=== PATIENT | female | born 1965 | race Hispanic/Latino ===

== ENCOUNTER → 2020-01-08 | Outpatient (CLI) | payer OTHER | END | disposition home or self-care (01) | LOC: SHCH 15:19 | PROVIDERS: ATTEND Internal Medicine Cardiovascular Disease | DX: R06.00 Dyspnea, unspecified (principal) | CPT/HCPCS: 93306; 93356 ==

== ENCOUNTER → 2020-01-13 | Outpatient (CLI) | payer OTHER | END | disposition home or self-care (01) | LOC: SHCH 10:25 → EDUNIT# 10:30 | PROVIDERS: ATTEND Internal Medicine Cardiovascular Disease | DX: I87.2 Venous insufficiency (chronic) (peripheral) (principal) | CPT/HCPCS: 93970 ==

== ENCOUNTER → 2020-01-27 | Outpatient (CLI) | payer OTHER ==
[~2020-01-27] MED LIST: REGADENOSON 0.4 MG/5 ML PF SYG IVP SCH
== END | disposition home or self-care (01) ==
LOC: SHCH 07:54
PROVIDERS: ATTEND Internal Medicine Cardiovascular Disease
DX: R00.0 Tachycardia, unspecified (principal); R06.00 Dyspnea, unspecified
CPT/HCPCS: 78452; 93017; 96374; A9500 ×2; J2785

== ENCOUNTER → 2023-07-11 | Outpatient (CLI) | payer OTHER ==
[~2023-07-11] MED LIST changes: +ASPI-1443 PO; +ATOR20TA65 PO; +BUME2TAB5 PO; +CARV3.12 PO; +CHOL100046 PO; +FERS325 PO; +GLIP5TAB15 PO; +HYDR25TA67 PO; +ISOS20TA85 PO; +METO5TAB7 PO; -REGADENOSON 0.4 MG/5 ML PF SYG IVP SCH; +RIVA2.5T PO
[2023-07-11 16:24] LABS: BASOPHILS # (AUTO) 0.04 K/uL (0.00-0.20); BASOPHILS % (AUTO) 0.4 % (0.0-5.0); EOSINOPHILS # (AUTO) 0.15 K/uL (0.00-0.70); EOSINOPHILS % (AUTO) 1.7 % (0.0-8.0); IMMATURE GRANULOCYTE ABSOLUTE 0.05 K/uL (0-1); LYMPHOCYTES # (AUTO) 0.9 K/uL (1.0-4.8); LYMPHOCYTES % (AUTO) 9.5 % (21.0-51.0); MEAN CORPUSCULAR HEMOGLOBIN 25.2 pg (27.0-33.0); MEAN CORPUSCULAR HGB CONC 28.1 g/dL (32.0-36.0); MEAN CORPUSCULAR VOLUME 89.7 fL (79-99); MONOCYTES # (AUTO) 0.4 K/uL (0.1-1.0); MONOCYTES % (AUTO) 4.8 % (3.0-13.0); NEUTROPHILS # (AUTO) 7.5 K/uL (1.8-7.7); PLATELET COUNT (AUTO) 342 K/uL (130-400); RED BLOOD CELL COUNT(AUTO) 3.01 MIL/uL (4.00-5.50); RED CELL DISTRIBUTION WIDTH 17.7 % (11.0-15.5)
[2023-07-11 16:56] LABS: ALBUMIN 3.1 g/dL (3.5-5.0); BILIRUBIN,TOTAL 0.6 mg/dL (0.2-1.0); CREATININE 2.8 mg/dL (0.5-1.0); MAGNESIUM 2.2 mg/dL (1.80-2.40); PHOSPHORUS 5.1 mg/dL (2.5-4.9); POTASSIUM 5.1 mmol/L (3.5-5.1); TOTAL PROTEIN, SERUM 7.8 g/dL (6.0-8.3)
== END | disposition home or self-care (01) ==
LOC: LAB 13:33
PROVIDERS: ATTEND Internal Medicine Cardiovascular Disease
DX: I50.22 Chronic systolic (congestive) heart failure (principal); R60.9 Edema, unspecified; R19.7 Diarrhea, unspecified
CPT/HCPCS: 36415; 80053; 83735; 83880; 84100; 85025; 87324

== ENCOUNTER → 2023-08-16 | Outpatient (CLI) | payer OTHER ==
[2023-08-16 16:07] LABS: BASOPHILS # (AUTO) 0.05 K/uL (0.00-0.20); BASOPHILS % (AUTO) 0.4 % (0.0-5.0); EOSINOPHILS # (AUTO) 0.15 K/uL (0.00-0.70); EOSINOPHILS % (AUTO) 1.3 % (0.0-8.0); HEMATOCRIT 33.4 % (36-48); IMMATURE GRANULOCYTE ABSOLUTE 0.05 K/uL (0-1); LYMPHOCYTES # (AUTO) 1.9 K/uL (1.0-4.8); MEAN CORPUSCULAR HEMOGLOBIN 25.2 pg (27.0-33.0); MEAN CORPUSCULAR HGB CONC 30.5 g/dL (32.0-36.0); MEAN CORPUSCULAR VOLUME 82.7 fL (79-99); MONOCYTES # (AUTO) 0.7 K/uL (0.1-1.0); MONOCYTES % (AUTO) 5.5 % (3.0-13.0); NEUTROPHILS # (AUTO) 9.1 K/uL (1.8-7.7); NEUTROPHILS % (AUTO) 76.4 % (40.0-77.0); PLATELET COUNT (AUTO) 355 K/uL (130-400); RED BLOOD CELL COUNT(AUTO) 4.04 MIL/uL (4.00-5.50); RED CELL DISTRIBUTION WIDTH 16.7 % (11.0-15.5); WHITE BLOOD COUNT (AUTO) 11.9 K/uL (4.8-10.8)
[2023-08-16 16:19] LABS: ALBUMIN 3.7 g/dL (3.5-5.0); BILIRUBIN,TOTAL 0.5 mg/dL (0.2-1.0); CREATININE 4.4 mg/dL (0.5-1.0); MAGNESIUM 2.4 mg/dL (1.80-2.40); POTASSIUM 3.6 mmol/L (3.5-5.1); TOTAL PROTEIN, SERUM 8.9 g/dL (6.0-8.3)
== END | disposition home or self-care (01) ==
LOC: LAB 12:37 → EDSTATUS 12:45 → LAB 12:46
PROVIDERS: ATTEND Internal Medicine Cardiovascular Disease
DX: N18.4 Chronic kidney disease, stage 4 (severe) (principal)
CPT/HCPCS: 36415; 80053; 83735; 83880; 85025

== ENCOUNTER 2023-09-18 11:10 | Day surgery (SDC) | payer OTHER ==
[~2023-09-18] VITALS: Ht 160 cm; Wt 78.5 kg
[2023-09-18] VITALS (16 sets, daily range): BP systolic 149–199; BP diastolic 55–82; PULSE 72–82; RESP 10–18
[2023-09-18] MEDS: 0.9%NACL 1000ML 1,000 ML IV ONE (12:05)
[2023-09-18] MEDS ORDERED: KETAMINE 50MG/ML SYRINGE 50 MG/ML DISP.SYRIN ONE (13:07)
[2023-09-18] MEDS: HYDRALAZINE 20MG/ML VIAL ONE (14:07)
[2023-09-18] MEDS: DEXTROSE 50%-WATER 50 ML DISP.SYRIN IV ONE (14:07)
== END 2023-09-18 15:15 | disposition home or self-care (01) ==
LOC: SUH 11:10 → DAH 11:10 → SUH 15:15
PROVIDERS: ATTEND Internal Medicine Gastroenterology
DX: R19.7 Diarrhea, unspecified (principal); R19.4 Change in bowel habit; K64.0 First degree hemorrhoids; D64.9 Anemia, unspecified; I25.10 Atherosclerotic heart disease of native coronary artery without angina pectoris; K76.0 Fatty (change of) liver, not elsewhere classified; K31.A0 Gastric intestinal metaplasia, unspecified; K80.20 Calculus of gallbladder without cholecystitis without obstruction; N20.0 Calculus of kidney; E78.5 Hyperlipidemia, unspecified; I25.2 Old myocardial infarction; E11.22 Type 2 diabetes mellitus with diabetic chronic kidney disease; I12.9 Hypertensive chronic kidney disease with stage 1 through stage 4 chronic kidney disease, or unspecified chronic kidney disease; N18.9 Chronic kidney disease, unspecified; Z79.84 Long term (current) use of oral hypoglycemic drugs; Z79.82 Long term (current) use of aspirin; Z79.01 Long term (current) use of anticoagulants; Z95.1 Presence of aortocoronary bypass graft; Z98.51 Tubal ligation status; Z86.16 Personal history of COVID-19; Z86.010 Personal history of colon polyps; Z79.899 Other long term (current) drug therapy; Z98.890 Other specified postprocedural states; Z83.3 Family history of diabetes mellitus; Z82.49 Family history of ischemic heart disease and other diseases of the circulatory system; Z80.0 Family history of malignant neoplasm of digestive organs
CPT/HCPCS: 45378; 93005; 82948 ×3; 81025; J7030; J7070; J0360; J3490; A4215 ×3; A4223; A4221; A4663; A4606; A4620 ×2

== ENCOUNTER 2023-09-19 10:59 | Day surgery (SDC) | payer OTHER ==
[2023-09-19] VITALS (11 sets, daily range): BP systolic 154–178; BP diastolic 65–86; PULSE 65–79; RESP 15–18
[~2023-09-19] VITALS: Ht 160 cm; Wt 78.5 kg
[~2023-09-19 10:59] MED LIST changes: +0.9%NACL 1000ML 1,000 ML IV ONE
[2023-09-19] MEDS ORDERED: LIDOCAINE PF 100MG/5ML (2%) SYRINGE 5ML ONE (13:43)
[2023-09-19] MEDS ORDERED: PROPOFOL 10 MG/ML 20ML VIAL IV ONE (13:43)
[2023-09-19] MEDS ORDERED: MIDAZOLAM HCL 1 MG/ML 2ML VIAL ONE (13:52)
[2023-09-19] MEDS: HYDRALAZINE 20MG/ML VIAL ONE (15:05)
== END 2023-09-19 15:30 | disposition home or self-care (01) ==
LOC: ENDO 10:59 → DAH 10:59 → ENDO 15:30
PROVIDERS: ATTEND Internal Medicine Gastroenterology
DX: R19.4 Change in bowel habit (principal); K64.0 First degree hemorrhoids; K31.A0 Gastric intestinal metaplasia, unspecified; E78.5 Hyperlipidemia, unspecified; I25.10 Atherosclerotic heart disease of native coronary artery without angina pectoris; I12.9 Hypertensive chronic kidney disease with stage 1 through stage 4 chronic kidney disease, or unspecified chronic kidney disease; E11.22 Type 2 diabetes mellitus with diabetic chronic kidney disease; N18.9 Chronic kidney disease, unspecified; R19.7 Diarrhea, unspecified; K76.0 Fatty (change of) liver, not elsewhere classified; K21.9 Gastro-esophageal reflux disease without esophagitis; K80.20 Calculus of gallbladder without cholecystitis without obstruction; N20.0 Calculus of kidney; D64.9 Anemia, unspecified; Z86.73 Personal history of transient ischemic attack (TIA), and cerebral infarction without residual deficits; Z86.010 Personal history of colon polyps; Z83.3 Family history of diabetes mellitus; Z82.49 Family history of ischemic heart disease and other diseases of the circulatory system; Z79.82 Long term (current) use of aspirin; Z79.84 Long term (current) use of oral hypoglycemic drugs; Z79.899 Other long term (current) drug therapy; Z98.51 Tubal ligation status; Z98.890 Other specified postprocedural states; Z86.16 Personal history of COVID-19
CPT/HCPCS: 45378; 82948 ×2; J7030 ×2; J2001; J0360; J2250; J2704; A4620; A4215; A4223; A4657; A4222; J3490

== ENCOUNTER 2023-10-13 22:54 | Inpatient (IN) | payer OTHER ==
[~2023-10-13] VITALS: Ht 162.6 cm; Wt 80.3 kg
[~2023-10-13 22:54] MED LIST changes: -0.9%NACL 1000ML 1,000 ML IV ONE
[2023-10-13 23:07] LABS: BASOPHILS # (AUTO) 0.07 K/uL (0.00-0.20); BASOPHILS % (AUTO) 0.4 % (0.0-5.0); EOSINOPHILS # (AUTO) 0.22 K/uL (0.00-0.70); EOSINOPHILS % (AUTO) 1.3 % (0.0-8.0); HEMATOCRIT 28.8 % (36-48); IMMATURE GRANULOCYTE ABSOLUTE 0.13 K/uL (0-1); LYMPHOCYTES # (AUTO) 1.1 K/uL (1.0-4.8); LYMPHOCYTES % (AUTO) 6.1 % (21.0-51.0); MEAN CORPUSCULAR HGB CONC 30.6 g/dL (32.0-36.0); MONOCYTES # (AUTO) 0.6 K/uL (0.1-1.0); MONOCYTES % (AUTO) 3.4 % (3.0-13.0); NEUTROPHILS # (AUTO) 15.2 K/uL (1.8-7.7); PLATELET COUNT (AUTO) 316 K/uL (130-400); RED BLOOD CELL COUNT(AUTO) 3.39 MIL/uL (4.00-5.50); RED CELL DISTRIBUTION WIDTH 18.1 % (11.0-15.5); WHITE BLOOD COUNT (AUTO) 17.3 K/uL (4.8-10.8)
[2023-10-13] MEDS: HYDROMORPHONE 0.5 MG SYG (0.5MG/0.5ML) IVP ONE (23:07)
[2023-10-13] MEDS: FUROSEMIDE 40MG VIAL IV ONE (23:08)
[2023-10-13 23:10] VITALS: PULSE 90; RESP 28; O2SAT 100
[2023-10-13 23:15] LABS: POTASSIUM 5.7 mmol/L (3.5-5.1)
[2023-10-13 23:20] LABS: ALBUMIN 3.3 g/dL (3.5-5.0); BILIRUBIN,TOTAL 0.7 mg/dL (0.2-1.0); TOTAL PROTEIN, SERUM 8.2 g/dL (6.0-8.3)
[2023-10-13 23:24] LABS: B-TYPE NATRIURETIC PEPTIDE 1060 pg/mL (0-100)
[2023-10-13] MEDS: NITROGLYCERIN 1GM OINT 1 INCH/1GM TD ONE (23:33)
[2023-10-13 23:49] LABS: INFLUENZA TYPE A Negative For Type A (NEGATIVE); INFLUENZA TYPE B Negative For Type B (NEGATIVE)
[2023-10-13 23:58] LABS: SARS-CoV-2, RNA, NAAT NEGATIVE SARS CoV-2 (NEGATIVE)
[2023-10-14] VITALS (15 sets, daily range): BP systolic 119–173; BP diastolic 51–87; PULSE 64–79; RESP 14–20; O2SAT 98–100
[2023-10-14 00:25] LABS: APPEARANCE,URINE CLOUDY (CLEAR); BILIRUBIN,URINE NEGATIVE (NEGATIVE); COLOR,URINE YELLOW (YELLOW); GLUCOSE, URINE (UA) 70 mg/dL (NEGATIVE); KETONES,URINE NEGATIVE (NEGATIVE); LEUKOCYTE ESTERASE ,URINE 500 Leu/uL (NEGATIVE); NITRATE,URINE NEGATIVE (NEGATIVE); PH,URINE 5.5 (5.0-8.0); PROTEIN,URINE 100 mg/dL (NEGATIVE); UROBILINOGEN,URINE 0.2 mg/dL (0.2-1.0)
[2023-10-14] MEDS ORDERED: FOLI0.8T22 PO (00:37)
[2023-10-14] MEDS ORDERED: INSU100V12 SQ (00:37)
[2023-10-14] MEDS ORDERED: ASCO100031 PO (00:37)
[2023-10-14 00:40] LABS: ADD UA MICROSCOPIC YES
[2023-10-14 00:45] LABS: BACTERIA,URINE MANY /HPF (None Seen); SQUAMOUS EPITHELIAL CELL,UR FEW /HPF (0-2); WBC CLUMP MANY /HPF (0-1); WBC,URINE TNTC /HPF (0-1)
[2023-10-14 00:50] LABS: ABG BASE EXCESS -9.2 mmol/L (-2.0-3.0); ABG HCO3 16.6 mmol/L (21.0-28.0); ABG OXYGEN SATURATION 97.1 % (95.0-99.0); ABG PCO2 36 mmHg (32-45); ABG PH 7.281 (7.35-7.450); PO2, ARTERIAL BG 102.8 mmHg (83.0-108.0); VENT MODE, BG BIPAP 12 (ROOM AIR)
[2023-10-14] MEDS: INSULIN HUMULIN R 100 UNIT/ML 3ML SQ SCH (06:07)
[2023-10-14] MEDS: AZITHROMYCIN 500MG+NS 250ML 250 ML IVPB SCH (08:19)
[2023-10-14] MEDS: CEFTRIAXONE 2GM VIAL IVPB SCH (08:19)
[2023-10-14] MEDS: ASPIRIN 81 MG EC TAB PO SCH (08:20)
[2023-10-14] MEDS: FUROSEMIDE 40MG VIAL IV SCH (08:20)
[2023-10-14 08:34] LABS: BASOPHILS # (AUTO) 0.05 K/uL (0.00-0.20); BASOPHILS % (AUTO) 0.4 % (0.0-5.0); EOSINOPHILS # (AUTO) 0.16 K/uL (0.00-0.70); EOSINOPHILS % (AUTO) 1.3 % (0.0-8.0); HEMATOCRIT 27.2 % (36-48); IMMATURE GRANULOCYTE ABSOLUTE 0.09 K/uL (0-1); LYMPHOCYTES # (AUTO) 1.4 K/uL (1.0-4.8); LYMPHOCYTES % (AUTO) 11.7 % (21.0-51.0); MEAN CORPUSCULAR HEMOGLOBIN 26.5 pg (27.0-33.0); MEAN CORPUSCULAR HGB CONC 29.8 g/dL (32.0-36.0); MEAN CORPUSCULAR VOLUME 88.9 fL (79-99); MONOCYTES # (AUTO) 0.5 K/uL (0.1-1.0); MONOCYTES % (AUTO) 3.6 % (3.0-13.0); NEUTROPHILS # (AUTO) 10.2 K/uL (1.8-7.7); NEUTROPHILS % (AUTO) 82.3 % (40.0-77.0); PLATELET COUNT (AUTO) 224 K/uL (130-400); RED BLOOD CELL COUNT(AUTO) 3.06 MIL/uL (4.00-5.50); WHITE BLOOD COUNT (AUTO) 12.4 K/uL (4.8-10.8)
[2023-10-14 08:42] LABS: ALBUMIN 2.8 g/dL (3.5-5.0); BILIRUBIN,TOTAL 0.7 mg/dL (0.2-1.0); CREATININE 2.9 mg/dL (0.5-1.0); MAGNESIUM 2.1 mg/dL (1.80-2.40); PHOSPHORUS 4.4 mg/dL (2.5-4.9); POTASSIUM 4.4 mmol/L (3.5-5.1); TOTAL PROTEIN, SERUM 7.4 g/dL (6.0-8.3)
[2023-10-14] MEDS: HEPARIN 5,000 UNIT VIAL SQ SCH (08:42)
[2023-10-14] MEDS ORDERED: FUROSEMIDE 40MG VIAL IV SCH (09:00)
[2023-10-14] MEDS ORDERED: ENOXAPARIN SODIUM 40 MG/0.4 ML SYRINGE SQ SCH (09:00)
[2023-10-14 09:04] LABS: ABG BASE EXCESS -5.7 mmol/L (-2.0-3.0); ABG HCO3 19.5 mmol/L (21.0-28.0); ABG OXYGEN SATURATION 80.6 % (95.0-99.0); ABG PCO2 37 mmHg (32-45); ABG PH 7.334 (7.35-7.450); DEVICE COMMENT LR EDDIE, RN; PO2, ARTERIAL BG 47.1 mmHg (83.0-108.0); VENT MODE, BG RA (ROOM AIR)
[2023-10-14] MEDS: HEPARIN 5,000 UNIT VIAL IV ONE (11:12)
[2023-10-14] MEDS: HEPARIN 25,000 UNITS/250ML D5W 250 ML IV SCH (11:20)
[2023-10-14] MEDS: CARVEDILOL 3.125 MG TABLET PO SCH (11:28)
[2023-10-14] MEDS: ISOSORBIDE MONONITRATE 20 MG TABLET PO SCH (11:28)
[2023-10-14 13:13] LABS: CREATININE,URINE RANDOM 66.26 mg/dL (30-135)
[2023-10-14] MEDS: HYDRALAZINE HCL 10 MG TABLET PO SCH (15:02)
[2023-10-14] MEDS ORDERED: CARVEDILOL 3.125 MG TABLET PO SCH (21:00)
[2023-10-14] MEDS: ATORVASTATIN 20 MG TABLET PO SCH (22:01)
[2023-10-15] VITALS (8 sets, daily range): BP systolic 118–168; BP diastolic 54–74; PULSE 65–76; RESP 18–21; O2SAT 100
[2023-10-15 00:07] LABS: INR 1.09 (0.85-1.15); PROTHROMBIN TIME 11.7 SEC (9.6-11.6)
[2023-10-15 04:07] LABS: BASOPHILS # (AUTO) 0.04 K/uL (0.00-0.20); BASOPHILS % (AUTO) 0.4 % (0.0-5.0); EOSINOPHILS # (AUTO) 0.38 K/uL (0.00-0.70); EOSINOPHILS % (AUTO) 3.5 % (0.0-8.0); HEMATOCRIT 24.4 % (36-48); IMMATURE GRANULOCYTE ABSOLUTE 0.05 K/uL (0-1); LYMPHOCYTES # (AUTO) 1.7 K/uL (1.0-4.8); LYMPHOCYTES % (AUTO) 15.4 % (21.0-51.0); MEAN CORPUSCULAR HEMOGLOBIN 26.3 pg (27.0-33.0); MEAN CORPUSCULAR HGB CONC 29.9 g/dL (32.0-36.0); MEAN CORPUSCULAR VOLUME 87.8 fL (79-99); MONOCYTES # (AUTO) 0.6 K/uL (0.1-1.0); MONOCYTES % (AUTO) 5.9 % (3.0-13.0); NEUTROPHILS % (AUTO) 74.3 % (40.0-77.0); PLATELET COUNT (AUTO) 206 K/uL (130-400); RED BLOOD CELL COUNT(AUTO) 2.78 MIL/uL (4.00-5.50); RED CELL DISTRIBUTION WIDTH 18.2 % (11.0-15.5); WHITE BLOOD COUNT (AUTO) 10.8 K/uL (4.8-10.8)
[2023-10-15 04:14] LABS: % IRON SATURATION 6.1 % (22-44); CREATININE 3.2 mg/dL (0.5-1.0); PHOSPHORUS 5.9 mg/dL (2.5-4.9); POTASSIUM 4.7 mmol/L (3.5-5.1)
[2023-10-15] MEDS: ISOSORBIDE MONONITRATE 20 MG TABLET PO SCH (08:30)
[2023-10-15] MEDS ORDERED: ISOSORBIDE MONONITRATE 20 MG TABLET PO SCH (09:00)
[2023-10-15] MEDS ORDERED: LACE ASSESSMENT (SCORE > 11) MISC SCH (11:30)
[2023-10-15] MEDS: METOLAZONE 2.5 MG TABLET PO ONE (14:26)
[2023-10-15] MEDS: BUMETANIDE 1MG/4ML VIAL IVP SCH (15:26)
[2023-10-16] VITALS (8 sets, daily range): BP systolic 127–183; BP diastolic 62–89; PULSE 74–98; RESP 18–21; O2SAT 96
[2023-10-16 03:50] LABS: HEMATOCRIT 23.8 % (36-48); MEAN CORPUSCULAR HEMOGLOBIN 26.2 pg (27.0-33.0); MEAN CORPUSCULAR HGB CONC 30.3 g/dL (32.0-36.0); MEAN CORPUSCULAR VOLUME 86.5 fL (79-99); RED BLOOD CELL COUNT(AUTO) 2.75 MIL/uL (4.00-5.50); RED CELL DISTRIBUTION WIDTH 17.9 % (11.0-15.5); WHITE BLOOD COUNT (AUTO) 10.4 K/uL (4.8-10.8)
[2023-10-16 04:07] LABS: ALBUMIN 2.6 g/dL (3.5-5.0); BILIRUBIN,TOTAL 0.3 mg/dL (0.2-1.0); CREATININE 3.2 mg/dL (0.5-1.0); MAGNESIUM 1.8 mg/dL (1.80-2.40); PHOSPHORUS 6.3 mg/dL (2.5-4.9); POTASSIUM 4.6 mmol/L (3.5-5.1)
[2023-10-16] MEDS: FERROUS SULFATE 325 MG TABLET.DR PO SCH (08:50)
[2023-10-16] MEDS: METOLAZONE 2.5 MG TABLET PO SCH (08:50)
[2023-10-16 09:29] LABS: HEMOGLOBIN A1C 8.1 % (4.0-6.0)
[2023-10-16 09:32] LABS: CHOLESTEROL 97 mg/dL (<200); HDL CHOLESTEROL 44 mg/dL (35-85); LDL DIRECT 45 mg/dL (0-99); TRIGLYCERIDES 83 mg/dL (30-200)
[2023-10-16] MEDS ORDERED: COMPOUND IV MISC 1 EACH IVSOLN MISC PRN (14:00)
[2023-10-16] MEDS: IRON SUCROSE COMPLEX 300 MG in 0.9% NACL 250ML IV SCH (21:21)
[2023-10-17] VITALS (11 sets, daily range): BP systolic 113–154; BP diastolic 53–76; PULSE 68–76; RESP 16–18; O2SAT 92–97
[2023-10-17 04:04] LABS: % IRON SATURATION 90.4 % (22-44)
[2023-10-17 04:11] LABS: ALBUMIN 2.6 g/dL (3.5-5.0); BILIRUBIN,TOTAL 0.3 mg/dL (0.2-1.0); CREATININE 3.1 mg/dL (0.5-1.0); MAGNESIUM 1.7 mg/dL (1.80-2.40); PHOSPHORUS 5.9 mg/dL (2.5-4.9); POTASSIUM 4.8 mmol/L (3.5-5.1); TOTAL PROTEIN, SERUM 6.6 g/dL (6.0-8.3)
[2023-10-17 04:51] LABS: HEMATOCRIT 23.5 % (36-48); MEAN CORPUSCULAR HEMOGLOBIN 26.2 pg (27.0-33.0); MEAN CORPUSCULAR HGB CONC 30.2 g/dL (32.0-36.0); MEAN CORPUSCULAR VOLUME 86.7 fL (79-99); RED BLOOD CELL COUNT(AUTO) 2.71 MIL/uL (4.00-5.50); RED CELL DISTRIBUTION WIDTH 17.5 % (11.0-15.5); WHITE BLOOD COUNT (AUTO) 11.2 K/uL (4.8-10.8)
[2023-10-17] MEDS: BUMETANIDE 1MG/4ML VIAL IVP SCH (08:47)
[2023-10-17] MEDS: EPOETIN ALFA-EPBX (NON-ESRD) 10,000 UNIT/ML VIAL SQ SCH (17:40)
[2023-10-18] VITALS (9 sets, daily range): BP systolic 125–141; BP diastolic 60–73; PULSE 65–76; RESP 16–18; O2SAT 92–95
[2023-10-18 03:32] LABS: HEMATOCRIT 23.1 % (36-48); MEAN CORPUSCULAR HEMOGLOBIN 25.8 pg (27.0-33.0); MEAN CORPUSCULAR HGB CONC 30.3 g/dL (32.0-36.0); MEAN CORPUSCULAR VOLUME 85.2 fL (79-99); RED BLOOD CELL COUNT(AUTO) 2.71 MIL/uL (4.00-5.50); RED CELL DISTRIBUTION WIDTH 17.7 % (11.0-15.5); WHITE BLOOD COUNT (AUTO) 11.1 K/uL (4.8-10.8)
[2023-10-18 03:43] LABS: ALBUMIN 2.6 g/dL (3.5-5.0); BILIRUBIN,TOTAL 0.3 mg/dL (0.2-1.0); CREATININE 3.4 mg/dL (0.5-1.0); MAGNESIUM 1.9 mg/dL (1.80-2.40); POTASSIUM 4.2 mmol/L (3.5-5.1); TOTAL PROTEIN, SERUM 6.9 g/dL (6.0-8.3)
[2023-10-18] MEDS: BUMETANIDE 1 MG TAB PO SCH (08:22)
[2023-10-18] MEDS: DOCUSATE SODIUM 100 MG CAP PO SCH (12:27)
[2023-10-18] MEDS: FERROUS SULFATE 325 MG TABLET.DR PO SCH (20:06)
[2023-10-19] VITALS (9 sets, daily range): BP systolic 116–156; BP diastolic 45–72; PULSE 65–76; RESP 16–19; O2SAT 95–100
[2023-10-19 03:40] LABS: MEAN CORPUSCULAR HEMOGLOBIN 25.7 pg (27.0-33.0); MEAN CORPUSCULAR HGB CONC 29.6 g/dL (32.0-36.0); NUCLEATED RED BLOOD CELLS 0.7 % (0.0-0.19); RED BLOOD CELL COUNT(AUTO) 2.76 MIL/uL (4.00-5.50); RED CELL DISTRIBUTION WIDTH 18.1 % (11.0-15.5); WHITE BLOOD COUNT (AUTO) 11.9 K/uL (4.8-10.8)
[2023-10-19 03:54] LABS: ALBUMIN 2.8 g/dL (3.5-5.0); BILIRUBIN,TOTAL 0.2 mg/dL (0.2-1.0); CREATININE 3.9 mg/dL (0.5-1.0); POTASSIUM 4.5 mmol/L (3.5-5.1); TOTAL PROTEIN, SERUM 7.1 g/dL (6.0-8.3)
[2023-10-19] MEDS: METOLAZONE 2.5 MG TABLET PO SCH (09:31)
[2023-10-19] MEDS ORDERED: ALBUMIN (HUMAN) 25% 50 ML IV ONE (10:30)
[2023-10-20] VITALS (9 sets, daily range): BP systolic 125–179; BP diastolic 59–90; PULSE 65–75; RESP 18–20; O2SAT 96–98
[2023-10-20 05:29] LABS: HEMATOCRIT 29.1 % (36-48); MEAN CORPUSCULAR HEMOGLOBIN 26.2 pg (27.0-33.0); MEAN CORPUSCULAR HGB CONC 30.2 g/dL (32.0-36.0); MEAN CORPUSCULAR VOLUME 86.6 fL (79-99); NUCLEATED RED BLOOD CELLS 0.5 % (0.0-0.19); RED BLOOD CELL COUNT(AUTO) 3.36 MIL/uL (4.00-5.50); RED CELL DISTRIBUTION WIDTH 17.2 % (11.0-15.5); WHITE BLOOD COUNT (AUTO) 13.4 K/uL (4.8-10.8)
[2023-10-20 05:39] LABS: CREATININE 4.8 mg/dL (0.5-1.0); MAGNESIUM 2.1 mg/dL (1.80-2.40); POTASSIUM 4.4 mmol/L (3.5-5.1)
[2023-10-20] MEDS ORDERED: THIAMINE HCL 100 MG/ML 2ML VIAL IVP ONE (14:00)
[2023-10-20] MEDS ORDERED: ALBUMIN (HUMAN) 25% 100 ML IV SCH (14:00)
[2023-10-21] VITALS (10 sets, daily range): BP systolic 120–168; BP diastolic 56–96; PULSE 62–73; RESP 16–20; O2SAT 96–97
[2023-10-21 04:21] LABS: HEMATOCRIT 27.8 % (36-48); MEAN CORPUSCULAR HEMOGLOBIN 26.7 pg (27.0-33.0); MEAN CORPUSCULAR HGB CONC 30.6 g/dL (32.0-36.0); MEAN CORPUSCULAR VOLUME 87.4 fL (79-99); PLATELET COUNT (AUTO) 231 K/uL (130-400); RED BLOOD CELL COUNT(AUTO) 3.18 MIL/uL (4.00-5.50); RED CELL DISTRIBUTION WIDTH 17.6 % (11.0-15.5); WHITE BLOOD COUNT (AUTO) 11.9 K/uL (4.8-10.8)
[2023-10-21 04:37] LABS: ALBUMIN 2.8 g/dL (3.5-5.0); BILIRUBIN,TOTAL 0.5 mg/dL (0.2-1.0); CREATININE 5.1 mg/dL (0.5-1.0); PHOSPHORUS 6.3 mg/dL (2.5-4.9); POTASSIUM 4.3 mmol/L (3.5-5.1); TOTAL PROTEIN, SERUM 6.9 g/dL (6.0-8.3)
[2023-10-21 05:31] LABS: INR 1.08 (0.85-1.15); PROTHROMBIN TIME 11.6 SEC (9.6-11.6)
[2023-10-21 05:33] LABS: PARTIAL THROMBOPLASTIN TIME 27.1 SEC (26.3-35.5)
[2023-10-21] MEDS ORDERED: THIAMINE HCL 100 MG/ML 2ML VIAL IVP SCH (09:00)
[2023-10-21] MEDS: SEVELAMER HCL 800 MG TABLET PO SCH (17:12)
[2023-10-22] VITALS (11 sets, daily range): BP systolic 119–180; BP diastolic 56–79; PULSE 65–78; RESP 16–20; O2SAT 90–96
[2023-10-22 04:27] LABS: HEMATOCRIT 29.1 % (36-48); MEAN CORPUSCULAR HEMOGLOBIN 27.6 pg (27.0-33.0); MEAN CORPUSCULAR HGB CONC 31.3 g/dL (32.0-36.0); MEAN CORPUSCULAR VOLUME 88.2 fL (79-99); RED BLOOD CELL COUNT(AUTO) 3.3 MIL/uL (4.00-5.50); RED CELL DISTRIBUTION WIDTH 17.9 % (11.0-15.5)
[2023-10-22 04:47] LABS: ALBUMIN 2.9 g/dL (3.5-5.0); BILIRUBIN,TOTAL 0.4 mg/dL (0.2-1.0); CREATININE 4.6 mg/dL (0.5-1.0); PHOSPHORUS 6.7 mg/dL (2.5-4.9); POTASSIUM 3.5 mmol/L (3.5-5.1); TOTAL PROTEIN, SERUM 7.3 g/dL (6.0-8.3)
[2023-10-23] VITALS (9 sets, daily range): BP systolic 113–166; BP diastolic 60–83; PULSE 62–67; RESP 16–20; O2SAT 96–99
[2023-10-23] MEDS: HYDRALAZINE HCL 10 MG TABLET PO SCH (14:05)
[2023-10-24] VITALS (10 sets, daily range): BP systolic 109–174; BP diastolic 54–67; PULSE 59–82; RESP 17–19; O2SAT 86–100
[2023-10-24 05:27] LABS: BASOPHILS # (AUTO) 0.04 K/uL (0.00-0.20); BASOPHILS % (AUTO) 0.4 % (0.0-5.0); EOSINOPHILS # (AUTO) 0.31 K/uL (0.00-0.70); EOSINOPHILS % (AUTO) 3.2 % (0.0-8.0); HEMATOCRIT 32.5 % (36-48); IMMATURE GRANULOCYTE ABSOLUTE 0.06 K/uL (0-1); LYMPHOCYTES # (AUTO) 1.5 K/uL (1.0-4.8); LYMPHOCYTES % (AUTO) 15.2 % (21.0-51.0); MEAN CORPUSCULAR HEMOGLOBIN 26.8 pg (27.0-33.0); MEAN CORPUSCULAR HGB CONC 29.8 g/dL (32.0-36.0); MEAN CORPUSCULAR VOLUME 89.8 fL (79-99); MONOCYTES # (AUTO) 0.5 K/uL (0.1-1.0); MONOCYTES % (AUTO) 5.5 % (3.0-13.0); NEUTROPHILS # (AUTO) 7.2 K/uL (1.8-7.7); NEUTROPHILS % (AUTO) 75.1 % (40.0-77.0); PLATELET COUNT (AUTO) 286 K/uL (130-400); RED BLOOD CELL COUNT(AUTO) 3.62 MIL/uL (4.00-5.50); RED CELL DISTRIBUTION WIDTH 18.3 % (11.0-15.5); WHITE BLOOD COUNT (AUTO) 9.6 K/uL (4.8-10.8)
[2023-10-24 05:52] LABS: ALBUMIN 3.2 g/dL (3.5-5.0); BILIRUBIN,TOTAL 0.4 mg/dL (0.2-1.0); CREATININE 3.8 mg/dL (0.5-1.0); MAGNESIUM 1.7 mg/dL (1.80-2.40); PHOSPHORUS 5.4 mg/dL (2.5-4.9); POTASSIUM 3.7 mmol/L (3.5-5.1); TOTAL PROTEIN, SERUM 7.7 g/dL (6.0-8.3)
[2023-10-25] VITALS (8 sets, daily range): BP systolic 97–156; BP diastolic 49–62; PULSE 60–80; RESP 14–20; O2SAT 96–98
[2023-10-25 05:53] LABS: HEMATOCRIT 31.6 % (36-48); MEAN CORPUSCULAR HEMOGLOBIN 27.5 pg (27.0-33.0); MEAN CORPUSCULAR HGB CONC 30.7 g/dL (32.0-36.0); MEAN CORPUSCULAR VOLUME 89.5 fL (79-99); RED BLOOD CELL COUNT(AUTO) 3.53 MIL/uL (4.00-5.50); RED CELL DISTRIBUTION WIDTH 18.4 % (11.0-15.5); WHITE BLOOD COUNT (AUTO) 8.7 K/uL (4.8-10.8)
[2023-10-25 06:32] LABS: BILIRUBIN,TOTAL 0.4 mg/dL (0.2-1.0); CREATININE 3.6 mg/dL (0.5-1.0); PHOSPHORUS 5.5 mg/dL (2.5-4.9); POTASSIUM 3.7 mmol/L (3.5-5.1); TOTAL PROTEIN, SERUM 7.3 g/dL (6.0-8.3)
[2023-10-26] VITALS (10 sets, daily range): BP systolic 129–183; BP diastolic 35–81; PULSE 63–80; RESP 16–20; O2SAT 86–100
[2023-10-26 04:59] LABS: HEMATOCRIT 30.8 % (36-48); MEAN CORPUSCULAR HEMOGLOBIN 27.5 pg (27.0-33.0); MEAN CORPUSCULAR HGB CONC 30.8 g/dL (32.0-36.0); MEAN CORPUSCULAR VOLUME 89.3 fL (79-99); RED BLOOD CELL COUNT(AUTO) 3.45 MIL/uL (4.00-5.50); RED CELL DISTRIBUTION WIDTH 18.8 % (11.0-15.5); WHITE BLOOD COUNT (AUTO) 9.2 K/uL (4.8-10.8)
[2023-10-26 05:12] LABS: MAGNESIUM 1.6 mg/dL (1.80-2.40)
[2023-10-27] VITALS (10 sets, daily range): BP systolic 133–188; BP diastolic 58–81; PULSE 65–75; RESP 17–19; O2SAT 92–100
[2023-10-27 04:35] LABS: BASOPHILS # (AUTO) 0.06 K/uL (0.00-0.20); BASOPHILS % (AUTO) 0.6 % (0.0-5.0); EOSINOPHILS # (AUTO) 0.33 K/uL (0.00-0.70); EOSINOPHILS % (AUTO) 3.2 % (0.0-8.0); HEMATOCRIT 32.1 % (36-48); IMMATURE GRANULOCYTE ABSOLUTE 0.06 K/uL (0-1); LYMPHOCYTES # (AUTO) 1.8 K/uL (1.0-4.8); LYMPHOCYTES % (AUTO) 17.3 % (21.0-51.0); MEAN CORPUSCULAR HEMOGLOBIN 27.9 pg (27.0-33.0); MEAN CORPUSCULAR HGB CONC 30.2 g/dL (32.0-36.0); MEAN CORPUSCULAR VOLUME 92.2 fL (79-99); MONOCYTES # (AUTO) 0.6 K/uL (0.1-1.0); MONOCYTES % (AUTO) 5.9 % (3.0-13.0); NEUTROPHILS # (AUTO) 7.6 K/uL (1.8-7.7); NEUTROPHILS % (AUTO) 72.4 % (40.0-77.0); PLATELET COUNT (AUTO) 226 K/uL (130-400); RED BLOOD CELL COUNT(AUTO) 3.48 MIL/uL (4.00-5.50); RED CELL DISTRIBUTION WIDTH 18.4 % (11.0-15.5); WHITE BLOOD COUNT (AUTO) 10.4 K/uL (4.8-10.8)
[2023-10-27 04:43] LABS: INR 1.07 (0.85-1.15); PROTHROMBIN TIME 11.5 SEC (9.6-11.6)
[2023-10-27 04:44] LABS: PARTIAL THROMBOPLASTIN TIME 26.3 SEC (26.3-35.5)
[2023-10-27 04:53] LABS: ALBUMIN 3.1 g/dL (3.5-5.0); BILIRUBIN,TOTAL 0.4 mg/dL (0.2-1.0); CREATININE 3.7 mg/dL (0.5-1.0); MAGNESIUM 1.6 mg/dL (1.80-2.40); POTASSIUM 4.2 mmol/L (3.5-5.1); TOTAL PROTEIN, SERUM 7.3 g/dL (6.0-8.3)
[2023-10-28] VITALS (8 sets, daily range): BP systolic 114–176; BP diastolic 52–93; PULSE 64–72; RESP 16–19; O2SAT 97–100
[2023-10-28 04:44] LABS: HEMATOCRIT 32.3 % (36-48); MEAN CORPUSCULAR HEMOGLOBIN 27.7 pg (27.0-33.0); MEAN CORPUSCULAR HGB CONC 30.3 g/dL (32.0-36.0); MEAN CORPUSCULAR VOLUME 91.2 fL (79-99); PLATELET COUNT (AUTO) 213 K/uL (130-400); RED BLOOD CELL COUNT(AUTO) 3.54 MIL/uL (4.00-5.50); RED CELL DISTRIBUTION WIDTH 18.5 % (11.0-15.5); WHITE BLOOD COUNT (AUTO) 10.6 K/uL (4.8-10.8)
[2023-10-28 05:18] LABS: CREATININE 3.4 mg/dL (0.5-1.0); MAGNESIUM 1.6 mg/dL (1.80-2.40); POTASSIUM 3.9 mmol/L (3.5-5.1)
[2023-10-29] VITALS (8 sets, daily range): BP systolic 100–179; BP diastolic 57–74; PULSE 3–69; RESP 18–20; O2SAT 98–100
[2023-10-29 05:25] LABS: HEMATOCRIT 33.7 % (36-48); MEAN CORPUSCULAR HEMOGLOBIN 27.1 pg (27.0-33.0); MEAN CORPUSCULAR HGB CONC 30.6 g/dL (32.0-36.0); MEAN CORPUSCULAR VOLUME 88.7 fL (79-99); RED BLOOD CELL COUNT(AUTO) 3.8 MIL/uL (4.00-5.50); RED CELL DISTRIBUTION WIDTH 18.4 % (11.0-15.5); WHITE BLOOD COUNT (AUTO) 10.9 K/uL (4.8-10.8)
[2023-10-29 05:58] LABS: CREATININE 3.6 mg/dL (0.5-1.0); MAGNESIUM 1.7 mg/dL (1.80-2.40); POTASSIUM 4.2 mmol/L (3.5-5.1)
[2023-10-29] MEDS: MAGNESIUM 2GM PREMIX 50ML 50 ML IV PRN (17:39)
[2023-10-30 00:07] VITALS: BP 126/74; PULSE 61; RESP 18
[2023-10-30 04:20] VITALS: BP 122/65; PULSE 66; RESP 17
[2023-10-30 04:44] LABS: BASOPHILS # (AUTO) 0.06 K/uL (0.00-0.20); BASOPHILS % (AUTO) 0.6 % (0.0-5.0); EOSINOPHILS # (AUTO) 0.35 K/uL (0.00-0.70); EOSINOPHILS % (AUTO) 3.5 % (0.0-8.0); IMMATURE GRANULOCYTE ABSOLUTE 0.05 K/uL (0-1); LYMPHOCYTES # (AUTO) 1.4 K/uL (1.0-4.8); LYMPHOCYTES % (AUTO) 14.2 % (21.0-51.0); MEAN CORPUSCULAR HEMOGLOBIN 27.4 pg (27.0-33.0); MEAN CORPUSCULAR HGB CONC 30.6 g/dL (32.0-36.0); MEAN CORPUSCULAR VOLUME 89.7 fL (79-99); MONOCYTES # (AUTO) 0.6 K/uL (0.1-1.0); MONOCYTES % (AUTO) 6.1 % (3.0-13.0); NEUTROPHILS # (AUTO) 7.5 K/uL (1.8-7.7); NEUTROPHILS % (AUTO) 75.1 % (40.0-77.0); PLATELET COUNT (AUTO) 252 K/uL (130-400); RED BLOOD CELL COUNT(AUTO) 3.79 MIL/uL (4.00-5.50); RED CELL DISTRIBUTION WIDTH 18.7 % (11.0-15.5)
[2023-10-30 04:54] LABS: INR 1.04 (0.85-1.15); PROTHROMBIN TIME 11.2 SEC (9.6-11.6)
[2023-10-30 05:12] LABS: ALBUMIN 3.1 g/dL (3.5-5.0); BILIRUBIN,TOTAL 0.4 mg/dL (0.2-1.0); CREATININE 3.7 mg/dL (0.5-1.0); MAGNESIUM 2.4 mg/dL (1.80-2.40); PHOSPHORUS 5.3 mg/dL (2.5-4.9); POTASSIUM 4.1 mmol/L (3.5-5.1); TOTAL PROTEIN, SERUM 7.5 g/dL (6.0-8.3)
[2023-10-30 08:00] VITALS: BP 146/56; PULSE 63; RESP 18; O2SAT 98
[2023-10-30 09:20] VITALS: PULSE 71; RESP 18; O2SAT 98
[2023-10-30 10:44] VITALS: PULSE 74; PULSE 79; PULSE 83; RESP 18; RESP 20; RESP 21; O2SAT 86; O2SAT 93; O2SAT 95
[2023-10-30 16:00] VITALS: BP 152/76; PULSE 69; RESP 18
== END 2023-10-30 17:05 | disposition home or self-care (01) | DRG 280 ==
LOC: EDH 22:54 → EDHIP 10-14 00:12 → 2AH 10-14 01:10 → 4AH 10-19 04:20
PROVIDERS: ADMIT Internal Medicine Infectious Disease; ATTEND Internal Medicine Infectious Disease
PROC: 5A09357 Assistance with Respiratory Ventilation, Less than 24 Consecutive Hours, Continuous Positive Airway Pressure (ICD-10-PCS; 2023-10-14)
PROC: 30233N1 Transfusion of Nonautologous Red Blood Cells into Peripheral Vein, Percutaneous Approach (ICD-10-PCS; principal; 2023-10-19)
DX: I21.4 Non-ST elevation (NSTEMI) myocardial infarction (principal); I50.41 Acute combined systolic (congestive) and diastolic (congestive) heart failure; J96.01 Acute respiratory failure with hypoxia; I13.2 Hypertensive heart and chronic kidney disease with heart failure and with stage 5 chronic kidney disease, or end stage renal disease; N30.00 Acute cystitis without hematuria; N17.9 Acute kidney failure, unspecified; N18.5 Chronic kidney disease, stage 5; K56.609 Unspecified intestinal obstruction, unspecified as to partial versus complete obstruction; I25.10 Atherosclerotic heart disease of native coronary artery without angina pectoris; Z20.822 Contact with and (suspected) exposure to COVID-19; D63.8 Anemia in other chronic diseases classified elsewhere; B96.20 Unspecified Escherichia coli [E. coli] as the cause of diseases classified elsewhere; D50.9 Iron deficiency anemia, unspecified; E11.22 Type 2 diabetes mellitus with diabetic chronic kidney disease; E11.51 Type 2 diabetes mellitus with diabetic peripheral angiopathy without gangrene; I95.9 Hypotension, unspecified; E78.00 Pure hypercholesterolemia, unspecified; E88.09 Other disorders of plasma-protein metabolism, not elsewhere classified; E87.5 Hyperkalemia; E66.01 Morbid (severe) obesity due to excess calories; I25.2 Old myocardial infarction; I49.3 Ventricular premature depolarization; N30.90 Cystitis, unspecified without hematuria; I87.2 Venous insufficiency (chronic) (peripheral); Z77.22 Contact with and (suspected) exposure to environmental tobacco smoke (acute) (chronic); Z79.01 Long term (current) use of anticoagulants; Z83.3 Family history of diabetes mellitus; Z95.1 Presence of aortocoronary bypass graft; Z68.30 Body mass index [BMI] 30.0-30.9, adult
CPT/HCPCS: 36415; 36430; 36600; 71045; 71046; 76376; 80048; 80053; 80061; 81001; 82306; 82570; 82607; 82728; 82803; 82948; 83036; 83540; 83550; 83605; 83735; 83880; 84100; 84145; 84156; 84425; 84484; 85018; 85025; 85027; 85378; 85610; 85730; 86850; 86900; 86901; 86923; 87040; 87086; 87186; 87635; 87804; 93005; 93306; 93356; 93970; 94660; 94760; G0378; J0456; J0696; J1170; J1644; J1756; J1815; J1940; J3475; J3490; J7050; P9016; Q5106

== ENCOUNTER → 2023-12-14 | Outpatient (CLI) | payer OTHER ==
[~2023-12-14] MED LIST changes: +ASCO100031 PO; +FOLI0.8T22 PO; +INSU100V12 SQ
== END | disposition home or self-care (01) ==
LOC: SHCH 13:20
PROVIDERS: ATTEND Internal Medicine Cardiovascular Disease
DX: I25.10 Atherosclerotic heart disease of native coronary artery without angina pectoris (principal); E11.22 Type 2 diabetes mellitus with diabetic chronic kidney disease; N18.5 Chronic kidney disease, stage 5; R60.9 Edema, unspecified
CPT/HCPCS: 93970

== ENCOUNTER 2025-03-13 13:23 | Emergency (ER) | payer OTHER ==
[~2025-03-13] VITALS: Ht 154.9 cm; Wt 81.6 kg
[~2025-03-13 13:23] MED LIST changes: -ASCO100031 PO; +ASCO10004 PO; +ISOS-58 PO; -ISOS20TA85 PO
--- NOTE | 2025-03-13 13:34 | ERN ---
ED Note History of Present Illness Stated Complaint: LT WRIST PAIN Chief Complaint: Wrist Pain/Injury Time Seen by MD: 13:28 Dictation: IS A 59-YEAR-OLD FEMALE HERE WITH COMPLAINTS OF NON TRAUMA LEFT WRIST PAIN MILD SWELLING SHE HAS HAD SINCE SUNDAY. NO FEVER NO CHILLS HE DENIES ANY HISTORY OF TRAUMA OR FALLS. SHE STATES I MIGHT HAVE SLEPT ON IT WRONG ON-CALL. SAID HE HISTORY OF GOUTY ARTHRITIS. SHE CAN ONLY TAKE TYLENOL FOR PAIN. Allergies: Coded Allergies: No Known Drug Allergies (Verified Allergy, Unknown, 04/03/23) Home Meds Reported Medications Insulin Detemir (Levemir) 100 Unit/Ml Vial, 46 UNIT SQ HS, VIAL 10/14/23 Ascorbic Acid (Vitamin C) 1,000 Mg Tablet, 1000 MG PO DAILY, TAB 10/14/23 Folic Acid/Vitamin B Comp W-C (Maria E-Christie Tablet) 0.8 Mg Tablet, 0.8 MG PO AM, TAB 10/14/23 Rivaroxaban (Xarelto) 2.5 Mg Tablet, 2.5 MG PO BID, TAB 04/03/23 Metolazone (Metolazone) 5 Mg Tablet, 5 MG PO AD, TAB 04/03/23 Isosorbide Mononitrate (Isosorbide Mononitrate) 20 Mg Tablet, 30 MG PO DAILY, TAB 04/03/23 Hydralazine HCl (Hydralazine HCl) 25 Mg Tablet, 10 MG PO TID, TAB 04/03/23 Glipizide (Glipizide) 5 Mg Tablet, 5 MG PO AM, TAB 04/03/23 Ferrous Sulfate (Ferrous Sulfate) 325 Mg (65 Mg Iron) Ectab, 325 MG PO TIDP PRN for TITRATE, TAB.EC 04/03/23 Cholecalciferol (Vitamin D3) (Vitamin D3) 25 Mcg (1000 Unit) Capsule, 25 MCG PO AM, CAP 04/03/23 Carvedilol (Carvedilol) 3.125 Mg Tablet, 3.125 MG PO BID, TAB 04/03/23 Bumetanide (Bumetanide) 2 Mg Tablet, 2 MG PO BID, TAB 04/03/23 Atorvastatin Calcium (Atorvastatin Calcium) 20 Mg Tablet, 20 MG PO HS, TAB 04/03/23 Aspirin (Aspirin EC) 81 Mg Tablet.dr, 81 MG PO DAILY, TAB 04/03/23 Past Medical History Past Medical History: Anemia, CAD, Diabetes-Type II, High Cholesterol, Hypertension, Renal Disese Additional Past Medical Hx: FATTY LIVER Surgical History: CABG History: Not Applicable RN Note Reviewed/Agreed w/PFSH: Yes Review of System Dictation CONSTITUTIONAL: NEGATIVE EXCEPT FOR HPI HEAD/FACE: NEGATIVE EXCEPT FOR HPI EENT: NEGATIVE EXCEPT FOR HPI RESPIRATORY: NEGATIVE EXCEPT FOR HPI GASTROINTESTINAL/ABDOMINAL: NEGATIVE EXCEPT FOR HPI GENITOURINARY: NEGATIVE EXCEPT FOR HPI MUSCULOSKELETAL: NEGATIVE EXCEPT FOR HPI LEFT WRIST PAIN SWELLING INTEGUMENTARY: NEGATIVE EXCEPT FOR HPI NEUROLOGICAL/PSYCH: NEGATIVE EXCEPT FOR HPI HEMATOLOGIC/LYMPHATIC: NEGATIVE EXCEPT FOR HPI ALL SYSTEMS NEGATIVE, EXCEPT NOTED ABOVE. 13 POINT REVIEW OF SYSTEMS ASSESSED AND ALL NEGATIVE EXCEPT FOR ABOVE. Initial Vital Sign VS Vital Signs Date Time Temp Pulse Resp B/P (MAP) Pulse Ox O2 Delivery O2 Flow Rate FiO2 03/13/25 13:27 98.2 74 18 137/69 98 Physical Exam Dictation VITAL SIGNS REVIEWED GENERAL APPEARANCE: ALERT, ORIENTED X 3, MODERATE ACUTE DISTRESS, WELL DEVELOPED, NOURISHED. HEAD AND FACE: NON-TRAUMATIC. EYES: PERRL, PINK CONJUNCTIVAS, EYELID NO TRAUMA, ANTERIOR CHAMBER WITH ARCUS SENILIS. EARS: PINNAS INTACT AND NO SIGNS OF TRAUMA OR ERYTHEMA EAR CANALS CLEAR AND NO DISCHARGE TM NO ERYTHEMA NOSE: NO DISCHARGE, NO BLEEDING. OROPHARYNX: MOUTH NORMAL, TONGUE PINK, PHARYNX CLEAR,NO ERYTHEMA, TONSILS NO EXUDATES, NO ABSCESSES NOTED, MUCOUS MEMBRANE MOIST NECK: SUPPLE, NON-TENDER, NO THYROMEGALY, NO MASSES, NO JVD, NO BRUITS BREAST:DEFERRED CHEST:NO TENDERNESS, NO CREPITUS, NO PARADOXICAL MOVEMENT, NO RETRACTIONS LUNGS:CLEAR, WELL-VENTILATED, SYMMETRIC, NO RALES, NO WHEEZING, NO RHONCHI, NO STRIDOR, GOOD BREATH SOUNDS BILATERALLY HEART: REGULAR RATE, REGULAR RHYTHM, NO MURMUR, NO GALLOPS VASCULAR: NO PERIPHERAL EDEMA, ABDOMEN: SOFT, POSITIVE BOWEL SOUNDS, NONDISTENDED, NO GUARDING, NONTENDER, NO REBOUND, NO MASSES NO HEPATOMEGALY, NO SPLENOMEGALY, NO DON'S SIGN, NO HERNIAS. DIFFUSE TENDERNESS TO LEFT WRIST WITH BOWEL SWELLING. NO ERYTHEMA. DISTAL NEUROVASCULAR CMS INTACT SKIN: COLOR PINK, DRY, NO TURGOR, NO RASH, NO LACERATIONS, NO ABRASIONS, NO CONTUSIONS. LYMPHATIC: DEFERRED Results (Laboratory/Radiology) Laboratory/Radiology Laboratory Tests Test 03/13/25 13:39 Uric Acid 12.5 mg/dL (2.6-7.2) H Signed PATIENT: AALIYAH CAMPBELL MR#: [id number] : 1965 SEX: F AGE: 59 LOCATION: [facility] ORDER [id number] STATUS: REG ER REPORT#: [id number] SERVICE 1331 REASON: NON TRAUMA LEFT WRIST PAIN THREE DAYS ORDERING PHYSICIAN: LUIS WINN PROCEDURE: WRST 3V LT - WRIST COMP 3+VWS LT STUDY CR right wrist, 3 views. HISTORY Right wrist pain for three days, nontraumatic. TECHNIQUE Three radiographic views of the right wrist were obtained. COMPARISON None. FINDINGS Bones No acute fracture or aggressive appearing osseous lesion is identified. Carpal bones and distal radius and ulna are intact. Joints The carpal bones demonstrate normal alignment without dislocation. Joint spaces are preserved. Soft tissues and vasculature Soft tissue swelling and contusion are present involving the distal forearm, wrist, and hand region. Vascular calcifications are noted in the distal forearm, wrist, and hand soft tissues, compatible with chronic vascular disease. IMPRESSION * Mild Soft tissue contusion and swelling involving the distal forearm, wrist, and hand region. * Vascular calcifications in the distal forearm, wrist, and hand, consistent with chronic vascular disease. * No acute fracture or dislocation. /[place] Labs Reviewed?: Yes ED Course ED Course Orders Procedure Category Date Status Time Uric Acid LAB 03/13/25 Complete 13:31 Acetaminophen 500mg PHA 03/13/25 Complete Tab (Tylenol 500mg T 14:00 Wrist Comp 3+Vws Lt RAD 03/13/25 Resulted 13:31 Current Medications Medications (Trade) Dose Ordered Sig/Lore Route PRN Reason Start Time Stop Time Status Last Admin Dose Admin Acetaminophen (TYLenol 500MG TAB) 1,000 mg ONCE ONCE PO 03/13/25 14:00 03/13/25 14:01 DC 03/13/25 13:56 Vital Signs Date Time Temp Pulse Resp B/P (MAP) Pulse Ox O2 Delivery O2 Flow Rate FiO2 03/13/25 13:27 98.2 74 18 137/69 98 1540/PATIENT HAS A ACUTE GOUT HOWEVER SHE HAS END-STAGE RENAL DISEASE AND COLCHICINE HIS CONTRAINDICATED. WE WILL REFER PATIENT TO HER PRIMARY CARE DOCTOR FOR MANAGEMENT AND WE WILL CONTINUE TO HAVE HER TAKE TYLENOL UNTIL SEEN BY HER DOCTOR Medical Decision Making MDM MEDICAL DISCHARGE MAKING BASED ON X-RAY OF LEFT WRIST AND URIC ACID TO RULE OUT GALLOP X-RAY SHOWS CHRONIC CHANGES URIC ACID ELEVATED CONSISTENT WITH GOUTY ARTHRITIS COLCHICINE CONTRAINDICATED WITH PATIENT SHE WILL BE GIVEN MEDROL DOSEPAK AND SEE HER PRIMARY CARE DOCTOR SUNDAY DX & DISP Disposition: Discharge Departure Impression: Primary Impression: Gouty arthritis of left wrist Condition: Stable Scripts Methylprednisolone (Medrol) 4 Mg Tab.ds.pk 1 TAB PO AD for 6 Days, #21 TAB 0 Refills 6 on day 1 then reduce by one tablet daily until gone Prov: LUIS WINN 03/13/25 Additional Instructions: FOLLOW-UP WITH PRIMARY CARE PROVIDER IN 1 TO 2 DAYS. TAKE MEDICATIONS DIRECTED HERE IN THE EMERGENCY ROOM. OKAY TO CONTINUE HOME MEDICATIONS UNLESS OTHERWISE DISCUSSED DURING YOUR VISIT IN THE EMERGENCY ROOM TODAY. RETURN TO YOUR NEAREST EMERGENCY ROOM IF SYMPTOMS WORSEN OR IF THERE IS NO IMPROVEMENT. CALL 911 IF YOU NEED IMMEDIATE ASSISTANCE. TAKE TYLENOL OR MOTRIN [id number] NEEDED AND IF NO CONTRAINDICATIONS ARE PRESENT. INCREASE ORAL HYDRATION. A WOUND CULTURE OR URINE CULTURE WAS ORDERED HERE IN THE EMERGENCY ROOM DEPARTMENT PLEASE FOLLOW-UP WITH PRIMARY CARE PROVIDER AND ADVISE THEM TO GET REPEAT PORTS FROM OUR FACILITY. IF YOU HAD ANY SHANNAN WRAP/SPLINTS THAT WERE APPLIED HERE, PLEASE DO NOT REMOVE THEM UNTIL YOU SEE YOUR PRIMARY CARE OR SPECIALTY. TAKE MEDROL DOSEPAK DIRECTED FOR YOUR GOUT. SEE YOUR PRIMARY CARE DOCTOR FOR FOLLOW UP AND MANAGEMENT OF YOUR GOUT IN THE NEXT 1-2 DAYS Referrals: HE HILLMAN MD (PCP) Time of Disposition: 15:38 I have reviewed the case, and I agree with, Diagnosis and Plan LUIS WINN Mar 13, 2025 13:34
--- NOTE | 2025-03-13 14:00 | HMCIMG ---
STUDY CR right wrist, 3 views. HISTORY Right wrist pain for three days, nontraumatic. TECHNIQUE Three radiographic views of the right wrist were obtained. COMPARISON None. FINDINGS Bones No acute fracture or aggressive appearing osseous lesion is identified. Carpal bones and distal radius and ulna are intact. Joints The carpal bones demonstrate normal alignment without dislocation. Joint spaces are preserved. Soft tissues and vasculature Soft tissue swelling and contusion are present involving the distal forearm, wrist, and hand region. Vascular calcifications are noted in the distal forearm, wrist, and hand soft tissues, compatible with chronic vascular disease. IMPRESSION * Mild Soft tissue contusion and swelling involving the distal forearm, wrist, and hand region. * Vascular calcifications in the distal forearm, wrist, and hand, consistent with chronic vascular disease. * No acute fracture or dislocation. /[place]
[2025-03-13] MEDS ORDERED: METH4TAB3 PO (15:38)
[2025-03-13 15:52] VITALS: BP 146/80; PULSE 72; RESP 20; TEMP 98.5; O2SAT 99
== END 2025-03-13 15:52 | disposition home or self-care (01) ==
LOC: EDH 13:23
DX: M10.032 Idiopathic gout, left wrist (principal); I10 Essential (primary) hypertension; E11.9 Type 2 diabetes mellitus without complications; E78.00 Pure hypercholesterolemia, unspecified; I25.10 Atherosclerotic heart disease of native coronary artery without angina pectoris; Z79.899 Other long term (current) drug therapy; Z79.82 Long term (current) use of aspirin; Z79.01 Long term (current) use of anticoagulants; Z95.1 Presence of aortocoronary bypass graft
CPT/HCPCS: 36415; 73110; 84550; 99283; 99284